=== PATIENT | male | born 1970 | race Caucasian/White ===

== ENCOUNTER → 2018-06-20 00:49 | Emergency (ER) | payer BC ==
[2018-06-19] MEDS: KETOROLAC 30 MG INJ IM (23:40)
== END | disposition home or self-care (01) ==
DX: S10.93XA Contusion of unspecified part of neck, initial encounter (principal); S20.219A Contusion of unspecified front wall of thorax, initial encounter; M62.830 Muscle spasm of back; V79.40XA Driver of bus injured in collision with unspecified motor vehicles in traffic accident, initial encounter
CPT/HCPCS: 71046; 72040; 96372; 99284-25

== ENCOUNTER 2019-06-18 13:29 | Emergency (ER) | payer SELFPAY, BC ==
[2019-06-18] MEDS: LIDOCAINE 4% CR TOP (14:39)
[2019-06-18] MEDS: LIDOCAINE 1% (MDV) 20 ML INJ SC (14:39)
[2019-06-18] MEDS: BACITRACIN 0.9 GM OINT TOP (14:41)
== END 2019-06-18 15:26 | disposition home or self-care (01) ==
LOC: FTE 15:26
DX: L02.511 Cutaneous abscess of right hand (principal)
CPT/HCPCS: 26010; 99283-25

== ENCOUNTER 2019-06-20 15:39 | Emergency (ER) | payer SELFPAY | END 2019-06-20 16:55 | disposition home or self-care (01) | LOC: FTE 15:39 | DX: Z48.01 Encounter for change or removal of surgical wound dressing (principal) | CPT/HCPCS: 99281 ==